=== PATIENT | male | born 1995 | race Caucasian/White ===

== ENCOUNTER 2019-04-09 08:23 | Emergency (ER) | payer OTHER, SELFPAY ==
[~2019-04-09] VITALS: Ht 182.9 cm; Wt 104.5 kg
[2019-04-09 08:25] VITALS: BP 142/82
[2019-04-09] MEDS ORDERED: LIDOCAINE-MPF 1%, 5ML INFIL ONE (08:30)
[2019-04-09] MEDS ORDERED: DIPH,PERTUSS(ACELL),TET VAC/PF 0.5 ML IM-VACC ONE (08:30)
[2019-04-09] MEDS ORDERED: LIDOCAINE-MPF 1%, 5ML ONE (08:31)
[2019-04-09] MEDS ORDERED: NEOSPORIN OINT. PKT 1 PACKET ONE (08:45)
== END 2019-04-09 09:22 | disposition home or self-care (01) ==
LOC: ED 09:16
DX: S61.211A Laceration without foreign body of left index finger without damage to nail, initial encounter (principal); Y04.0XXA Assault by unarmed brawl or fight, initial encounter; Y93.89 Activity, other specified; Y92.009 Unspecified place in unspecified non-institutional (private) residence as the place of occurrence of the external cause; Y99.8 Other external cause status
CPT/HCPCS: 12041; 99284